=== PATIENT | female | born 1980 | race Caucasian/White ===

== ENCOUNTER 2016-05-01 11:57 | Emergency (ER) | payer OTHER ==
[2016-05-01 12:31] VITALS: BP 128/76
[2016-05-01] MEDS ORDERED: Acetaminophen TAB* 325 MG PO ONE (12:46)
--- NOTE | 2016-05-01 12:46 | UC ---
FLU HPI - HPI Summary HPI Summary: pt presents with c/o general malaise, fever, chills cough, sore throat X 5 days. pt has been managing symptoms at home with OTC antipyretics - History of Current Complaint Chief Complaint: UCGeneralIllness Stated Complaint: FEVER,THROAT Time Seen by Provider: 05/01/16 12:14 Hx Obtained From: Patient Hx Last Menstrual Period: 01/15/14 ?: No Onset/Duration: Sudden Onset, Lasting Days Severity Currently: Mild Severity Initially: Mild Associated Signs & Symptoms: Positive: Fever, Myalgia - Allergy/Home Medications Allergies/Adverse Reactions: Allergies Allergy/AdvReac Type Severity Reaction Status Date / Time No Known Allergies Allergy Verified 05/01/16 12:10 PMH/Surg Hx/FS Hx/Imm Hx Previously Healthy: Yes Endocrine History Of: Denies: Diabetes, Thyroid Disease Cardiovascular History Of: Denies: Cardiac Disorders, Hypertension Respiratory History Of: Denies: COPD, Asthma GI/ History Of: Denies: Ulcer - Surgical History Surgical History: None - Family History Known Family History: Positive: Hypertension - Social History Lives: With Family Alcohol Use: Rare Substance Use Type: None Smoking Status (MU): Former Smoker Type: eCigarettes Amount Used/How Often: daily - vapor Review of Systems Constitutional: Fever, Chills Eyes: Negative ENT: Sore Throat Respiratory: Negative Cardiovascular: Negative Gastrointestinal: Negative Genitourinary: Negative Motor: Negative Neurovascular: Negative Musculoskeletal: Negative Neurological: Negative Psychological: Negative All Other Systems Reviewed And Are Negative: Yes Physical Exam Triage Information Reviewed: Yes Appearance: Ill-Appearing - mild Vital Signs: Initial Vital Signs Temp 100.4 F 05/01/16 12:05 Pulse 92 05/01/16 12:05 Resp 16 05/01/16 12:05 BP 128/76 05/01/16 12:05 Pulse Ox 97 05/01/16 12:05 Vital Signs Reviewed: Yes Eye Exam: Normal ENT Exam: Normal Neck exam: Normal Respiratory Exam: Normal Cardiovascular Exam: Normal Musculoskeletal Exam: Normal Neurological Exam: Normal Psychological Exam: Normal Skin Exam: Normal Flu Course/Dx - Course Course Of Treatment: I discussed with the pt the positive Influenza B test. I refereed pt to follow up with PCP or to return to clinic as needed. I also discussed with the pt how to manage her symptoms with OTC medications. Pt verbalized understanding and agreed to plan of care. - Differential Dx/Diagnosis Differential Diagnosis/HQI/PQRI: Influenza, Upper Respiratory Infection Provider Diagnoses: Influenza B Discharge - Discharge Plan Condition: Stable Disposition: HOME Patient Education Materials: Influenza (ED) Referrals: Noel Hart MD [Primary Care Provider] - Additional Instructions: Please follow up with your PCP or return to clinic as needed.
== END 2016-05-01 13:12 | disposition home or self-care (01) ==
LOC: UCCORT 11:57
DX: J11.1 Influenza due to unidentified influenza virus with other respiratory manifestations (principal); Z87.891 Personal history of nicotine dependence
CPT/HCPCS: 87502; 99212; A9270-GY; G0463